=== PATIENT | male | born 1930 | race Hispanic/Latino ===

== ENCOUNTER 2017-06-08 13:44 | Emergency (ER) | payer MEDICARE ==
[2017-06-08 13:44] VITALS: BMI 25.8
[2017-06-08 14:17] VITALS: RESP 18; TEMP 98.8
--- NOTE | 2017-06-08 15:10 | ED PDOC ---
Arrival/HPI - General Historian: Patient, Spouse, Family - History of Present Illness Time/Duration: < week Symptom Onset: Sudden Symptom Course: Unchanged Quality: Aching, Cramping Severity Level: 8 Activities at Onset: Rest, Light Context: Home <DARCIE WHITLOCK - Last Filed: 06/08/17 17:34> <MirthaQuinn L - Last Filed: 06/08/17 18:10> - General Chief Complaint: Back Pain - History of Present Illness Narrative History of Present Illness (Text): 06/08/17 14:57 Mr. Michaud is an 87 year old male with a past medical history significant for HTN, prostate cancer s/p radiation (1992), and chronic low back zachariah who presents to [place] [facility] [place] with a chief complaint of shoulder and upper back pain s/ p mechanical fall 3 days NURSE ANESTHETIST. Patient states that on Saturday, he tripped over his slipper and fell on his back down 3 stairs at his home. He reports hitting his head on the wall which resulted in a "bump" and an abrasion on his left forehead but denies any LOC, dizziness, changes in his vision or any focal weakness. Patient reports bruising on his back and across both shoulders with associated pain in his right shoulder and bilateral upper back that have gotten worse despite patient taking tylenol. He endorses that he hasn't been able to take any NSAID's because he has an epidural scheduled for this Saturday. He denies any fever, chills, headache, chest pain, palpitations, SOB, wheezing, abdominal pain, N/V, diarrhea, constipation, burning with urination, neck pain, any bowel or bladder incontinence or any numbness/tingling/weakness of any extremity. (DARCIE WHITLOCK) Past Medical History - Provider Review Nursing Documentation Reviewed: Yes - Travel History Have you recently traveled outside [place] w/in the past 3 mons?: No - Past History Past History: Non-Contributing - Infectious Disease Hx of Infectious Diseases: None - Cardiac Hx Hypertension: Yes Hx Pacemaker: No - Pulmonary Hx Respiratory Disorders: No - Neurological Hx Paralysis: No - HEENT Hx HEENT Disorder: No - Renal Hx Renal Disorder: No - Endocrine/Metabolic Hx Endocrine Disorders: No - Hematological/Oncological Hx Blood Transfusions: No Hx Blood Transfusion Reaction: No - Musculoskeletal/Rheumatological Hx Musculoskeletal Disorders: No - Psychiatric Hx Emotional Abuse: No Hx Physical Abuse: No Hx Substance Use: No - Anesthesia Hx Anesthesia Reactions: No Hx Malignant Hyperthermia: No - Suicidal Assessment Feels Threatened In Home Enviroment: No <DARCIE WHITLOCK - Last Filed: 06/08/17 17:34> Family/Social History - Physician Review Nursing Documentation Reviewed: Yes Family/Social History: No Known Family HX Smoking Status: Current Some Days Smoker Hx Alcohol Use: No Hx Substance Use: No <DARCIE WHITLOCK - Last Filed: 06/08/17 17:34> Allergies/Home Meds <DARCIE WHITLOCK - Last Filed: 06/08/17 17:34> <Quinn Shannon - Last Filed: 06/08/17 18:10> Allergies/Adverse Reactions: Allergies No Known Allergies Allergy (Verified 05/11/13 09:49) Home Medications: Home Meds Medication Instructions Recorded Confirmed Ascorbic Acid [Vitamin C] 1,000 mg PO DAILY 05/11/13 06/08/17 Beta Carotene [Beta Carotene] 25,000 iu PO DAILY 05/11/13 06/08/17 Cholecalciferol [Vitamin D3] 1,000 iu PO DAILY 05/11/13 06/08/17 Ipriflavone [Ipriflavone] 1 tab PO DAILY 05/11/13 06/08/17 Lycopene [Lycopene] 5 mg PO DAILY 05/11/13 06/08/17 NIFEdipine ER [Procardia XL] 30 mg PO DAILY 05/11/13 06/08/17 Clayton-3/Dha/Epa/Fish Oil [Clayton-3 1 cap PO DAILY 05/11/13 06/08/17 Fish Oil] Quercetin [Quercetin] 1 tab PO DAILY 05/11/13 06/08/17 Selenium [Selenium] 200 mcg PO DAILY 05/11/13 06/08/17 Vitamin E [Vitamin E] 400 iu PO DAILY 05/11/13 06/08/17 Aspirin [Aspir-Low] 81 mg PO BID 05/18/13 06/08/17 Vitamin B Complex & Vitamin C 1 tab PO DAILY 05/18/13 06/08/17 [Strovite] Review of Systems - Physician Review All systems were reviewed & negative as marked: Yes - Review of Systems Constitutional: Normal. absent: Fevers, Night Sweats Eyes: Normal. absent: Vision Changes ENT: Normal Respiratory: Normal. absent: SOB, Wheezing Cardiovascular: Normal. absent: Chest Pain, Palpitations Gastrointestinal: Normal, Other (Denies bowel incontinence). absent: Abdominal Pain, Constipation, Diarrhea, Nausea, Vomiting Genitourinary Male: Normal. absent: Dysuria, Urinary Output Changes Musculoskeletal: Other (Right shoulder pain, upper back pain bilaterally). absent: Normal, Arthralgias, Back Pain, Neck Pain Skin: Rash (Red rash on back that went away), Other (Bruising diffusely scattered in upper back). absent: Normal Neurological: Normal. absent: Headache, Dizziness, Focal Weakness Endocrine: Normal Hemo/Lymphatic: Normal Psychiatric: Normal <DARCIE WHITLOCK - Last Filed: 06/08/17 17:34> Physical Exam Vital Signs Reviewed: Yes Temperature: Afebrile Blood Pressure: Normal Pulse: Regular Respiratory Rate: Normal Appearance: Positive for: Well-Appearing, Non-Toxic, Uncomfortable Pain Distress: Mild Mental Status: Positive for: Alert and Oriented X 3 - Systems Exam Head: Present: Normocephalic, Abrasion (Left frontal scalp abrasion with no active bleeding). No: Atraumatic Pupils: Present: PERRL Extroacular Muscles: Present: EOMI Conjunctiva: Present: Normal Ears: Present: Normal Mouth: Present: Moist Mucous Membranes Pharnyx: Present: Normal. No: ERYTHEMA, EXUDATE, TONSILS ENLARGED Nose (External): Present: Atraumatic Nose (Internal): Present: Normal Inspection. No: No Active Bleeding Neck: Present: Normal Range of Motion, Trachea Midline. No: Meningeal Signs, MIDLINE TENDERNESS, Paraspinal Tenderness, JVD, Lymphadenopathy Respiratory/Chest: Present: Clear to Auscultation, Good Air Exchange. No: Respiratory Distress, Accessory Muscle Use, Wheezes, Decreased Breath Sounds, Rales, Retracting, Rhonchi, Tachypneic, Tender to Palpation Cardiovascular: Present: Regular Rate and Rhythm, Normal S1, S2, Peripheal Pulses Present. No: Murmurs, Irregular Rhythm, Tachycardic, Bradycardic, Rub, Gallop, Muffled Abdomen: Present: Normal Bowel Sounds. No: Tenderness, Distention, Peritoneal Signs, Rebound, Guarding Back: Present: Other (Abrasions diffusely and bilaterally in posterior superior thoracic region). No: Normal Inspection, CVA Tenderness, Midline Tenderness, Paraspinal Tenderness Upper Extremity: Present: Normal ROM, NORMAL PULSES, Tenderness (TTP with contusion on R humeral head region), Erythema, Neurovascularly Intact, Capillary Refill < 2s. No: Normal Inspection, Cyanosis, Edema, Deformity Lower Extremity: Present: Normal Inspection, NORMAL PULSES, Normal ROM, Capillary Refill < 2 s. No: Edema, CALF TENDERNESS Neurological: Present: GCS=15, CN II-XII Intact, Speech Normal Skin: Present: Warm, Dry, Normal Color. No: Rashes Lymphatic: No: Cervical Adenopathy Psychiatric: Present: Alert, Oriented x 3, Normal Insight, Normal Concentration <DARCIE WHITLOCK - Last Filed: 06/08/17 17:34> Vital Signs Temp Pulse Resp BP Pulse Ox 06/08/17 16:15 67 18 143/76 98 06/08/17 14:05 98.8 F 71 18 145/83 99 Medical Decision Making - RAD Interpretation Reheater: ED Physician, Radiologist <DARCIE WHITLOCK - Last Filed: 06/08/17 17:34> <Quinn Shannon - Last Filed: 06/08/17 18:10> ED Course and Treatment: 06/08/17 15:18 Impression: 87 year old male with a past medical history significant for HTN, prostate cancer s/p radiation (1992), and chronic low back zachariah who presents to the [facility] with a chief complaint of shoulder and upper back pain s/p mechanical fall 3 days NURSE ANESTHETIST Plan: -R shoulder x-ray, Bilateral rib x-ray, thoracic spine x-ray and CT head w/o contrast -Tylenol 975mg PO for pain control -Reassess and disposition Prior Visits: No prior visits (DARCIE WHITLOCK) 06/08/17 16:12 In agreement with resident note, which includes further HPI details. Patient was seen and evaluated with resident, came up with plan and treatment together. 87 year old male presents complaining of shoulder and upper back pain s/p mechanical fall. Plan: -- CT Head -- Thoracic Spine X-Ray -- Ribs Bilaterial X-Ray -- Shoulder Right X-Ray 06/08/17 17:18 Xrays were read as negative by me. CT negative. Patient is in no painful distress. No shortness of breathe. Patient with family who will take him home. Will discharge patient home with family and advised to follow up with his PMD. Will return to the ED if symptoms worsen or any other concern. (Quinn Shannon) - RAD Interpretation Narrative RAD Interpretations (Text): 06/08/17 17:34 CT head: No acute findings Thoracic, Bilateral Rib and Right shoulder X-ray's with no obvious fractures or acute abnormalities, official read pending (DARCIE WHITLOCK) Radiology Orders: 06/08/17 14:48 DORSAL (THORACIC) SPINE [RAD] Stat RIBS BILATERAL [RAD] Stat 06/08/17 14:51 HEAD W/O CONTRAST [CT] Stat SHOULDER RIGHT [RAD] Stat - Medication Orders Current Medication Orders: Discontinued Medications Acetaminophen (Tylenol 325mg Tab) 975 mg PO STAT STA Stop: 06/08/17 14:52 Last Admin: 06/08/17 14:59 Dose: 650 mg Comments: Patient only wanted 650mg. MAR Pain/Vitals Document 06/08/17 14:59 GMD (Rec: 06/08/17 15:00 GMD [facility]-[id number]) Pain Reassessment Is This A Pain ReAssessment? No Sleep Is patient sleeping during reassessment? No Presence of Pain Presence of Pain Yes <DARCIE WHITLOCK - Last Filed: 06/08/17 17:34> - Scribe Statement The provider has reviewed the documentation as recorded by the Scribe <Quinn Shannon - Last Filed: 06/08/17 18:10> - Scribe Statement Héctor Garces All medical record entries made by the Scribe were at my direction and personally dictated by me. I have reviewed the chart and agree that the record accurately reflects my personal performance of the history, physical exam, medical decision making, and the department course for this patient. I have also personally directed, reviewed, and agree with the discharge instructions and disposition. (Quinn Shannon) Disposition/Present on Arrival - Present on Arrival Any Indicators Present on Arrival: No History of DVT/PE: No History of Uncontrolled Diabetes: No Urinary Catheter: No History of Decub. Ulcer: No History Surgical Site Infection Following: None - Disposition Have Diagnosis and Disposition been Completed?: Yes Disposition Time: 17:15 Patient Plan: Discharge <DARCIE WHITLOCK - Last Filed: 06/08/17 17:34> <MirthaQuinn - Last Filed: 06/08/17 18:10> - Disposition Diagnosis: Fall, Contusion, Shoulder pain, right Disposition: HOME/ ROUTINE Condition: GOOD Discharge Instructions (ExitCare): Contusion in Adults (ED), Thoracic Pain (ED) , Shoulder Pain (ED) Additional Instructions: Mr. Michaud, thank you for letting us take care of you today. Your provider was Dr. Shannon. You were treated for shoulder and thoracic pain. The emergency medical care you received today was directed at your acute symptoms. If you were prescribed any medication, please fill it and take as directed. It may take several days for your symptoms to resolve. Return to the Emergency Department if your symptoms worsen, do not improve, or if you have any other problems. Please contact your doctor or call one of the physicians/clinics you have been referred to that are listed on the Patient Visit Information form that is included in your discharge packet. Bring any paperwork you were given at discharge with you along with any medications you are taking to your follow up visit. Our treatment cannot replace ongoing medical care by a primary care provider (PCP) outside of the emergency department. PLEASE FOLLOW UP WITH YOUR PRIMARY CARE DOCTOR WITHIN ONE TO TWO WEEKS. Thank you for allowing the [facility] team to be part of your care today. If you had an X-Ray or CT scan: A Radiologist will review the ED reading if any change in treatment is needed we will contact you. Forms: [employer] [facility] (Algerian)
--- NOTE | 2017-06-08 16:10 | CT ---
PROCEDURE: CT HEAD WITHOUT CONTRAST. HISTORY: Mechanical fall COMPARISON: None available. TECHNIQUE: Axial computed tomography images were obtained through the head/brain without intravenous contrast. Radiation dose: Total exam DLP = 823 mGy-cm. This CT exam was performed using one or more of the following dose reduction techniques: Automated exposure control, adjustment of the mA and/or kV according to patient size, and/or use of iterative reconstruction technique. FINDINGS: HEMORRHAGE: No intracranial hemorrhage. BRAIN: No mass effect or edema. Chronic microvascular changes in the periventricular white matter VENTRICLES: Unremarkable. No hydrocephalus. CALVARIUM: Unremarkable. PARANASAL SINUSES: Unremarkable as visualized. No significant inflammatory changes. MASTOID AIR CELLS: Unremarkable as visualized. No inflammatory changes. OTHER FINDINGS: None. IMPRESSION: No acute findings
[2017-06-08 16:15] VITALS: BP 143/76; PULSE 67; O2SAT 98
--- NOTE | 2017-06-08 17:32 | RAD ---
HISTORY: Pain with bruising COMPARISON: No prior. FINDINGS: BONES: Alignment maintained. No fracture. DISC SPACES: Normal. SOFT TISSUES: Normal. OTHER FINDINGS: There is some osteophyte formation on the right side of the lower thoracic spine IMPRESSION: No evidence of compression fracture
--- NOTE | 2017-06-08 17:34 | RAD ---
PROCEDURE: Bilateral ribs HISTORY: pain with bruising COMPARISON: TECHNIQUE: Four views were obtained FINDINGS: There is no evidence of displaced rib fracture or pneumothorax. IMPRESSION: Negative study
--- NOTE | 2017-06-08 17:35 | RAD ---
PROCEDURE: Radiographs of the Right Shoulder HISTORY: pain with bruising COMPARISON: No prior. FINDINGS: BONES: Normal. No fracture. JOINTS: Normal. Glenohumeral and acromioclavicular joints preserved. No osteoarthritis. SOFT TISSUES: Normal. OTHER FINDINGS: None. IMPRESSION: Normal radiographs of the right shoulder.
== END 2017-06-08 17:18 | disposition home or self-care (01) ==
LOC: ED 13:44
DX: M25.511 Pain in right shoulder (principal); S40.011A Contusion of right shoulder, initial encounter; W10.8XXA Fall (on) (from) other stairs and steps, initial encounter; Y93.89 Activity, other specified; Y92.008 Other place in unspecified non-institutional (private) residence as the place of occurrence of the external cause